=== PATIENT | female | born 1935 | race Asian ===

== ENCOUNTER → 2016-11-20 | Outpatient (CLI) | payer MEDICARE ==
[~2016-11-20] MED LIST: ACET-1600 PO; AMIO200T42 PO; DEXA4TAB PO; DOXY100C2 PO; FOLI-17 PO; FOLI0.4T2 PO; FURO40TA6 PO; LEVO175T2 PO; LEVO50TA PO; LIDO5CRE14 TP; LISI-170 PO; LORA1TAB PO; OMNIPAQUE 350 MG/ML, 75ML BOTTLE ONE; PROC10TA PO; SIMV40TA3 PO; SOTA80TA8 PO; WARF1POW
== END | disposition home or self-care (01) ==
LOC: RAD 13:38
PROVIDERS: ATTEND Internal Medicine Hematology & Oncology
DX: C34.92 Malignant neoplasm of unspecified part of left bronchus or lung (principal); M48.54XA Collapsed vertebra, not elsewhere classified, thoracic region, initial encounter for fracture; M85.80 Other specified disorders of bone density and structure, unspecified site; J43.2 Centrilobular emphysema; J90 Pleural effusion, not elsewhere classified; I25.10 Atherosclerotic heart disease of native coronary artery without angina pectoris; I51.7 Cardiomegaly; J98.11 Atelectasis
CPT/HCPCS: 36415; 71260; 82565; J1642; Q9967